=== PATIENT | female | born 1960 | race Caucasian/White ===

== ENCOUNTER 2019-12-02 13:00 | Emergency (ER) | payer MEDICARE, OTHER, SELFPAY ==
[2019-12-02] VITALS (7 sets, daily range): BP systolic 90–101; BP diastolic 52–65; PULSE 101–106; RESP 12–18; TEMP 36.8; O2SAT 93–98
--- NOTE | ~2019-12-02 | CT_ITS ---
EXAMINATION: CT abdomen pelvis w con DATE: 12/02/2019 14:18 INDICATION: Right upper quadrant abdominal pain. Abdominal bloating. Ascites. TECHNIQUE: Computed tomography (CT) of the abdomen and pelvis was performed with 100 cc Omnipaque 350 intravenous contrast. Automated exposure control and iterative reconstruction technique were employe d. Exam dose: 546.73 mGy-cm total exam DLP. COMPARISON: None. FINDINGS: There is large right pleural effusion with compressive atelectasis of the right lower lobe and to a lesser extent middle lobe. No left pleural effusion. The left lower lung is clear. Normal heart size. No pericardial effusion. There is a small liver with prominent surface nodularity and heterogeneous echotexture, as well as pr esence of varices, consistent with cirrhosis. Hepatic space-occupying mass lesion is not excluded due to the heterogeneous texture. There is nonspecific thickening of the gallbladder wall. There is air within the intrahepatic and ext rahepatic bile ducts, the extra hepatic bile ducts measuring up to 9.4 mm diameter. No pancreatic spa ce-occupying mass lesion or calcification. Borderline splenic, spleen measuring up to 13 cm height. Occasional calcified splenic granulomas. Mild to moderate ascites. No adrenal mass lesion is evident. 12 mm upper pole right renal cyst. 1.5 cm lower pole left renal cyst. 5 mm probable upper and lower p ole left renal cysts. 3.5 x 4.5 cm left adnexal cystic lesion with attenuation of 14 Hounsfield units and some calcificatio ns. 2.4 x 3.5 cm right adnexal cystic lesion. There are large calcified uterine fibroids. There is a prominent amount of fecal material within the colon. No bowel obstruction or intraperitone al free air is evident. There is extensive abdominal aortic calcification, prominent left renal artery calcification and bila teral iliac and femoral artery calcification, without aneurysm. No intraperitoneal or retroperitoneal or pelvic mass lesion or adenopathy is noted otherwise. Healing posterolateral right 11th rib fracture. Healing posterolateral left 10th rib fracture. Diffuse idiopathic skeletal hyperostosis of the thoracic spine. Prominent degenerative disc disease at L5-S1. Degenerative change at the apophyseal joints particular ly in the lower lumbar and lumbosacral area. Diffuse osteopenia. IMPRESSION: Cirrhosis, borderline splenomegaly, ascites, varices Mild bile duct dilatation, pneumobilia Bilateral renal cysts Bilateral adnexal cystic lesions measuring up to 4.5 cm on the left, 3.5 cm on the right Calcified uterine fibroids Healing bilateral lower rib fractures Large right pleural effusion with compressive atelectasis of right lower and to a lesser extent middl e lobe Reviewed, dictated and finalized at [facility]. Reviewed, dictated and finalized at [facility]. IMPRESSION: Cirrhosis, borderline splenomegaly, ascites, varices Mild bile duct dilatation, pneumobilia Bilateral renal cysts Bilateral adnexal cystic lesions measuring up to 4.5 cm on the left, 3.5 cm on the right Calcified uterine fibroids Healing bilateral lower rib fractures Large right pleural effusion with compressive atelectasis of right lower and to a lesser extent middle lobe
--- NOTE | 2019-12-02 12:57 | ED.ABDPAIN ---
HPI - Abdominal Pain General Chief Complaint: Abdominal Pain Stated Complaint: POST OP PAIN Time Seen by Provider: 12/02/19 12:57 Source: patient Mode of arrival: EMS Limitations: no limitations History of Present Illness HPI narrative: A 59 y/o female presents to the ED, via EMS from [facility], with c/o RUQ ABD pain. Pt states that she had a biliary STENT removed on 11/30/19 and has had RUQ ABD pain since. Her STENT was placed at [facility] by Dr. Banegas. She has a PMHx of cirrhosis of the liver secondary to alcohol abuse and chronic abdominal pain. Pt adds that the ABD pain is more severe than normal the last 3 days. She denies N/V, fever, SOB, and CP. MD elicited complaint: abdominal pain (RUQ) Pertinent past history: other (Cirrhosis) Onset (ago): day(s) (2) Pain Consistency: constant Location: RUQ Context: confirms recent surgery/procedure (Biliary STENT removed) Associated symptoms: denies other symptoms Related Data Home Medications Medication Instructions Recorded Confirmed albuterol sulfate 2 puff INHALATION Q4H PRN 12/02/19 atenolol 25 mg PO DAILY 12/02/19 cyclobenzaprine 5 mg PO TID PRN 12/02/19 furosemide 20 mg PO DAILY 12/02/19 lactulose 20 g PO TID 12/02/19 lidocaine [Lidoderm] 1 patch TOPICAL DAILY 12/02/19 nicotine [Nicoderm CQ] 12/02/19 nortriptyline 10 mg PO HS 12/02/19 omeprazole 20 mg PO DAILY 12/02/19 oxycodone 12/02/19 spironolactone 50 mg PO DAILY 12/02/19 venlafaxine 75 mg PO DAILY 12/02/19 Allergies Allergy/AdvReac Type Severity Reaction Status Date / Time gabapentin Allergy Unknown Verified 12/02/19 13:07 Review of Systems Review of Systems: All systems reviewed & are unremarkable except as noted in HPI and below Constitutional: Constitutional: Denies fever(s) Cardiovascular: Cardiovascular: Denies chest pain Respiratory: Respiratory: Denies dyspnea Gastrointestinal: Gastrointestinal: Reports abdominal pain (RUQ), Denies nausea and Denies vomiting PMFSH Past Medical History Medical History (Updated 12/02/19 @ 18:18 by Tracee Curry MD) Chronic abdominal pain Cirrhosis with alcoholism History of biliary stent insertion Surgical History Surgical History (Updated 12/02/19 @ 13:10 by Rosa Tamayo) History of endoscopy Social History Social History (Updated 12/02/19 @ 13:11 by Rosa Tamayo) Alcohol intake: former Alcohol use details: Alcoholic Exam Narrative: Exam Narrative: General appearance: Well-developed, well-nourished, ill looking, pale skin, family member at the bedside Skin: Pale skin Head: Normocephalic, nontraumatic Eyes: Clear conjunctiva ENT: Oropharynx normal, ears normal, nose normal Neck: Supple, nontender Chest and respiratory: Airway patent, no respiratory distress, no accessory muscle use Heart: Regular rate/rhythm Abdomen: Large abdomen, moderate ascites, diffuse tenderness epigastric and right upper quadrant, no guarding or rebound, quiet bowel sounds Vascular: Normal peripheral pulses, normal capillary refill. Musculoskeletal: Normal range of motion, nontender back Neurologic: Alert and oriented ?3, NEURORADIOLOGIST is normal as tested, no gross motor deficit Course Course Emergency Course: Unchanged, stable Reevaluation(s) Reevaluation #1: Patient was accepted to be transferred to [facility], direct admit, discussed with Dr. Wayne/candle wrapper at [facility] Date: 12/02/19 Time: 18:18 Consultations Consultation #1: Discussed case with candle wrapper, Dr. Gutiérrez. They accept patient for transfer. Date: 12/02/19 Time: 17:45 Vital Signs Vital signs: Vital Signs Temperature 36.8 C 12/02/19 12:45 Pulse Rat
[2019-12-02 13:48] LABS: Basophils Absolute Auto 0.1 K/mm3 (0.0-0.1); Basophils Percent Auto 0.5 % (0.2-1.2); Eosinophils Absolute Auto 0.3 K/mm3 (0-0.3); Hemoglobin 8.1 g/dL (12.0-15.0); Immature Granulocyte Absolute 0.04 K/mm3 (0.00-0.031); Immature Granulocyte Percent A 0.4 % (0-0.5); Lymphocytes Absolute Auto 1.16 K/mm3 (0.9-3.2); Lymphocytes Percent Auto 12.4 % (18.3-44.2); Mean Corpuscular HGB Conc 32.4 g/dl (32-36); Mean Corpuscular Hemoglobin 31.2 pg (26-34); Mean Corpuscular Volume 96.2 fl (80-100); Mean Platelet Volume 10.3 fl (7.4-10.4); Monocytes Absolute Auto 1.2 K/mm3 (0.1-0.6); Monocytes Percent Auto 13.3 % (2.6-8.5); Neutrophils Absolute Auto 6.6 K/mm3 (1.3-6.7); Neutrophils Percent Auto 70.4 % (45.5-73.1); Platelet Count Result 292 k/mm3 (150-375); Red Cell Distribution Width 15.8 % (11.5-14.5); White Blood Count 9.3 K/mm3 (4.5-10.0)
[2019-12-02] MEDS: SODIUM CHLORIDE 0.9% IV 1,000 ML 100 ML IV CONT (13:50)
[2019-12-02] MEDS: MORPHINE SULFATE 4 MG/ML INJ IV PUSH ×2 (13:50→20:27)
[2019-12-02] MEDS: ONDANSETRON INJ 4 MG/2 ML VIAL IV PUSH ×2 (13:56→20:27)
[2019-12-02 14:01] LABS: INR 1.7; Prothrombin Time 19.7 Seconds (11.1-14.7)
[2019-12-02 14:09] LABS: Alanine Aminotransferase 21 U/L (4-35); Albumin Level 2.2 g/dL (3.5-5.1); Alkaline Phosphatase 198 U/L (38-126); Aspartate Amino Transferase 30 U/L (14-36); Bilirubin,Total 0.9 mg/dL (0.2-1.3); Blood Urea Nitrogen 10 mg/dL (7-17); Calcium 7.5 mg/dL (8.4-10.2); Carbon Dioxide 27 mmol/L (22-30); Chloride 100 mmol/L (98-107); Estimated CRCL calculation 73 ml/min; Estimated Glomerular Filt Rate > 60; Glucose 116 mg/dL (65-105); Lipase 109 U/L (23-300); Potassium 3.6 mmol/L (3.4-5.0); Sodium 133 mmol/L (137-145)
[2019-12-02 14:12] LABS: Estimated CRCL calculation 73 ml/min; Estimated Glomerular Filt Rate > 60
[2019-12-02 15:55] LABS: Add Urine Microscopic? YES; Appearance Urine Clear (Clear); Bilirubin Urine Negative (Negative); Blood Urine Negative (Negative); Color Urine Straw (Yellow); Glucose Urine UA Negative (Negative); Ketones Urine Negative (Negative); Leukocyte Esterase Ur Negative LEU/UL (Negative); Mucus Urine Rare /lpf; Nitrate Urine Negative (Negative); Protein Urine Negative (Negative); Specific Grav Ur 1.025 (1.001-1.035); Squamous Epithelial Cell Urine Few /hpf (Few); WBC Urine 0-3 /hpf
--- NOTE | 2019-12-02 19:40 | PC.NURSE ---
Called Sandra to transport to [facility].ETA [phone]
[2019-12-02] MEDS: SODIUM CHLORIDE 0.9% IV 1,000 ML 50 ML (20:02)
== END 2019-12-02 20:36 | disposition short-term general hospital (02) ==
PROVIDERS: Emergency Provider Emergency Medicine; PCP Family Medicine
DX: K70.31 Alcoholic cirrhosis of liver with ascites (principal); F10.20 Alcohol dependence, uncomplicated; D64.9 Anemia, unspecified; N28.1 Cyst of kidney, acquired; D25.9 Leiomyoma of uterus, unspecified; J90 Pleural effusion, not elsewhere classified; N94.89 Other specified conditions associated with female genital organs and menstrual cycle
CPT/HCPCS: 36415; 74177; 80053; 81001; 83690; 85025; 85610; 96361; 96374; 96375; 99285; J2270; J2405; J7030; Q9967

== ENCOUNTER 2019-12-25 16:52 | Inpatient (IN) | payer MEDICARE, OTHER, SELFPAY ==
[2019-12-25] VITALS (17 sets, daily range): BP systolic 82–123; BP diastolic 47–75; PULSE 84–98; RESP 6–27; TEMP 36.3–37.2; O2SAT 88–100; BMI 21.2
--- NOTE | ~2019-12-25 | XR_ITS ---
EXAMINATION: XR abdomen obstructive series EXAM DATE: 12/26/2019 09:12 INDICATION: Abdominal distention. TECHNIQUE: Frontal upright projection of the upper abdomen, frontal projection of the lower abdomen f or interpretation. There is no prior study for comparison. FINDINGS: Moderate right pleural effusion with adjacent airspace disease. Moderate amount of bowel s tool, gas without dilated small bowel, no small bowel obstruction. Probable fibroids. There is no org anomegaly. There are bony degenerative changes. No evidence of free intraperitoneal gas. IMPRESSION: 1. Moderate amount of bowel stool and gas. No obstruction. 2. Moderate right pleural effusion, adjacent airspace disease at least partly atelectasis. Reviewed, dictated and finalized at [facility].
--- NOTE | ~2019-12-25 | CT_ITS ---
EXAMINATION: CT brain wo con INDICATION: Confusion COMPARISON: None TECHNIQUE: Standard unenhanced head CT. The dose-length product (DLP) was 605.33 mGy-cm. The mA was a djusted according to patient size. Iterative reconstruction technique was employed. FINDINGS: There is no acute intraparenchymal hemorrhage. No evidence of mass lesion. No evidence of a cute infarction. There is mild periventricular and subcortical hypodensity probably related to small vessel ischemic disease. There is mild prominence of the sulci and ventricles related to cerebral atr ophy. Intracranial calcified cerebral atherosclerosis is noted. There are no extra-axial collections. There is no mass effect or midline shift. The orbits and soft tissues are unremarkable. The visuali zed sinuses and mastoid air cells are well aerated. IMPRESSION: 1. No acute intracranial abnormality. 2. Age related findings. Reviewed, dictated and finalized at [facility].
--- NOTE | ~2019-12-25 | XR_ITS ---
EXAMINATION: XR chest 1V portable EXAM DATE: 12/26/2019 09:12 INDICATION: Abdominal distention, shortness of breath. TECHNIQUE: Portable AP frontal chest x-ray was obtained. There is no prior study for comparison. FINDINGS: There is moderate-sized right pleural effusion with adjacent multisegmental atelectasis. Un derlying pneumonia or cancer not excludable. Left lung is clear. No pneumothorax. There are bony dege nerative changes. Cardiomediastinal silhouette is normal. There is aortic arterial sclerosis. IMPRESSION: Moderate right pleural effusion with adjacent atelectasis. Underlying pneumonia or cancer not excludable. Reviewed, dictated and finalized at location [facility]. IMPRESSION: Moderate right pleural effusion with adjacent atelectasis. Underlyi ng pneumonia or cancer not excludable.
--- NOTE | 2019-12-25 16:57 | ECG_ITS ---
Measurements Intervals [place] Rate: 87 P: 12 AK: 146 QRS: 64 QRSD: 104 T: 53 QT: 376 QTc: 453 Interpretive Statements SINUS RHYTHM LOW QRS VOLTAGE IN LIMB LEADS BASELINE ARTIFACT- I, II, III, AVR, AVL, AVF, V4-V6 BORDERLINE ECG Electronically Signed On 12-25-2019 18:41:56 CDT by Kenneth Escobedo D.O.
[2019-12-25 17:07] LABS: Basophils Percent Auto 0.5 % (0.2-1.2); Eosinophils Absolute Auto 0.5 K/mm3 (0-0.3); Eosinophils Percent Auto 6.5 % (0-4.4); Hematocrit 27.2 % (37.0-47.0); Hemoglobin 8.7 g/dL (12.0-15.0); Immature Granulocyte Absolute 0.04 K/mm3 (0.00-0.031); Immature Granulocyte Percent A 0.5 % (0-0.5); Lymphocytes Absolute Auto 1.28 K/mm3 (0.9-3.2); Lymphocytes Percent Auto 16.6 % (18.3-44.2); Mean Corpuscular Hemoglobin 31.1 pg (26-34); Mean Corpuscular Volume 97.1 fl (80-100); Mean Platelet Volume 10.2 fl (7.4-10.4); Monocytes Percent Auto 13.2 % (2.6-8.5); Neutrophils Absolute Auto 4.8 K/mm3 (1.3-6.7); Neutrophils Percent Auto 62.7 % (45.5-73.1); Platelet Count Result 285 k/mm3 (150-375); Red Cell Distribution Width 15.4 % (11.5-14.5); White Blood Count 7.7 K/mm3 (4.5-10.0)
--- NOTE | 2019-12-25 17:11 | ED.AMS ---
HPI - Altered Mental Status General Chief Complaint: Altered Mental Status Stated Complaint: AMS Time Seen by Provider: 12/25/19 17:09 Source: patient and EMS Mode of arrival: EMS Limitations: no limitations History of Present Illness HPI narrative: Patient is a 59 year old female who presents to the ED, via EMS, from [facility] with complaints of altered mental status. Pt was given 800mL of fluids from EMS. The custodial stated that she normally walks with a walker and this afternoon she started declining. She is only responsive with a sternal rub per EMS. Patient was given Narcan in the ED bed and a minute later she woke up and stated she was tired and wanted a blanket. She stated that she used to be on 10mg of Oxycodone and is now on 5mg. Patient reports chronic back pain but denies nausea, vomiting, diarrhea, cough, fever, chills, sweats, chest pain, or abdominal pain. Patient is a former smoker She lives in a correction. MD complaint: altered mental status Onset (ago): day(s) (today) Consistency of symptoms: getting Worse Context: other (pain medicine) Associated symptoms: denies other symptoms Treatments prior to arrival: IV fluid Related Data Home Medications Medication Instructions Recorded Confirmed albuterol sulfate 2 puff INHALATION Q4H PRN 12/02/19 12/25/19 atenolol 25 mg PO DAILY 12/02/19 12/25/19 cyclobenzaprine 5 mg PO TID PRN 12/02/19 12/25/19 furosemide 20 mg PO DAILY 12/02/19 12/25/19 lactulose 20 g PO TID 12/02/19 12/25/19 lidocaine [Lidoderm] 1 patch TOPICAL DAILY 12/02/19 12/25/19 nicotine [Nicoderm CQ] 21 mg TRANSDERMAL DAILY 12/02/19 12/25/19 nortriptyline 10 mg PO HS 12/02/19 12/25/19 omeprazole 20 mg PO DAILY 12/02/19 12/25/19 oxycodone 5 mg PO Q8H PRN 12/02/19 12/25/19 spironolactone 50 mg PO DAILY 12/02/19 12/25/19 venlafaxine 75 mg PO DAILY 12/02/19 12/25/19 acetaminophen 650 mg PO Q8H 12/25/19 12/25/19 ipratropium-albuterol 1 amp INHALATION Q6H PRN 12/25/19 12/25/19 metoprolol tartrate 25 mg PO BID 12/25/19 12/25/19 Allergies Allergy/AdvReac Type Severity Reaction Status Date / Time gabapentin Allergy Unknown Verified 12/25/19 18:08 Review of Systems Review of Systems: All systems reviewed & are unremarkable except as noted in HPI and below Constitutional: Constitutional: Denies chills, Denies fever(s) and Denies other (sweats) Cardiovascular: Cardiovascular: Denies chest pain Respiratory: Respiratory: Denies cough Gastrointestinal: Gastrointestinal: Denies abdominal pain, Denies diarrhea, Denies nausea and Denies vomiting Musculoskeletal: Musculoskeletal: Reports back pain (chronic) [facility] Past Medical History Medical History Chronic abdominal pain Cirrhosis with alcoholism History of biliary stent insertion Surgical History Surgical History History of endoscopy Social History Social History (Updated 12/25/19 @ 18:26 by Mer Waldron) Smoking packs per day: 2 Smoking cigarettes per day: 40.0 Years smoked: 46 Smoking pack-years: 92.00 Smoking status: Former smoker Tobacco type: cigarettes Second hand tobacco smoke exposure: No Alcohol intake: former Substance use: unknown Living arrangements: correction Gender identity (if verbalized by the patient): Female Spiritual care concerns: No Agree to blood products: Yes Exam HENMT: Mouth: Yes dry mucous membranes and Yes other (bit down when checking teeth) Teeth and gingiva: other (no upper teeth, lower teeth present) Eyes: EOM: EOMs intact bilaterally (normal after Narcan) and EOM abnormal (initially ) Resp: Effort & Inspection: other (was breathing slow before Narcan, normal after Narcan) Auscultation: clear to auscultation bilaterally Cardio: Peripheral pulses: femoral pulses present (strong) and dorsalis pedis present (weak) GI: Inspection: distended GI Palp: Yes A
[2019-12-25] MEDS: NALOXONE HCL INJ 2 MG/2 ML AMP IV PUSH (17:17)
[2019-12-25 17:19] LABS: Alanine Aminotransferase 17 U/L (4-35); Albumin Level 2.8 g/dL (3.5-5.1); Alkaline Phosphatase 185 U/L (38-126); Ammonia 28 umol/L (9-30); Aspartate Amino Transferase 36 U/L (14-36); Bilirubin,Total 0.8 mg/dL (0.2-1.3); Blood Urea Nitrogen 17 mg/dL (7-17); Carbon Dioxide 29 mmol/L (22-30); Chloride 102 mmol/L (98-107); Estimated Glomerular Filt Rate 57; Glucose 117 mg/dL (65-105); Lactic Acid 1.3 mmol/L (0.7-2.1); Potassium 4.5 mmol/L (3.4-5.0); Sodium 137 mmol/L (137-145)
[2019-12-25] MEDS: SODIUM CHLORIDE 0.9% IV 1,000 ML 999 ML IV CONT (17:21)
[2019-12-25 17:33] LABS: Add Urine Microscopic? YES; Appearance Urine Clear (Clear); Bilirubin Urine Negative (Negative); Blood Urine Negative (Negative); Color Urine Yellow (Yellow); Glucose Urine UA Negative (Negative); Hyaline Casts Urine 20-29 /lpf; Ketones Urine Negative (Negative); Leukocyte Esterase Ur Negative LEU/UL (Negative); Mucus Urine Rare /lpf; Nitrate Urine Negative (Negative); Protein Urine Negative (Negative); RBC Urine 0-2 /hpf (0-2); Specific Grav Ur 1.014 (1.001-1.035); Squamous Epithelial Cell Urine Few /hpf (Few); Urobilinogen Urine Negative mg/dL (<2.0); WBC Urine 0-3 /hpf
[2019-12-25 17:53] LABS: Amphetamine Screen Urine Negative (Negative); Barbiturate Screen Urine Negative (Negative); Benzodiazepines Screen Urine Negative (Negative); Cannabinoid Screen Urine Negative (Negative); Cocaine Screen Urine Negative (Negative); Methadone Screen Urine Negative (Negative); Opiate Screen Urine Positive (Negative); Phencyclidine Screen Urine Negative (Negative)
--- NOTE | 2019-12-25 21:00 | PM.IMHP ---
H&P: HPI History of Present Illness Chief complaint: Altered mental status. Narrative: Codie Martinez is a 59-year-old female with alcoholic cirrhosis, COPD, Sjogren's syndrome, and chronic anemia who presented to the emergency department earlier today via EMS from [facility] for evaluation of altered mental status. She is not the greatest historian, and as such some of this history is obtained via a review of her electronic medical records. Reportedly she was in her, however this afternoon she became less and less responsive to the point where she would not even arouse with a sternal rub. On arrival to the emergency department, she was given Narcan with improvement in her mentation. She is now in the ICU on a Narcan drip. At the time my evaluation she is alert and oriented x4, however she is intermittently confused and occasionally answers questions inappropriately. When asked why she was brought to the emergency department today, she begins telling a story that she was sitting at the dealer table, started shaking, and 1 of the players noticed and called for help. Of course this is not a true story, as she came from a [facility]. She did not seem to recall the history that I related to her, which was documented per the ED physician. 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 In any regard, she has no complaints at the time my evaluation specifically denies headache, diplopia, vertigo, dizziness, focal weakness, paresthesias, chest pain, palpitations, nausea, vomiting, diarrhea, and dysuria. No history of seizures. Review of Systems Review of Systems: Narrative: Twelve systems were reviewed with pertinent positives and negatives as per HPI. Her history is questionable given her intermittent confusion, however. Patient complains of a dry mouth, which is chronic secondary to Sjogren. She has chronic abdominal pain, and does take oxycodone on occasion. Previously she took 10 milligrams daily, but is now taking 5 milligrams as needed. I believe she did get a dose of oxycodone sometime this afternoon. Except as documented, all other systems were reviewed and are negative. [facility] Past Medical History Medical History (Updated 12/25/19 @ 21:37 by Radha Chacko PA-C) Alcoholic cirrhosis Chronic abdominal pain Chronic anemia COPD (chronic obstructive pulmonary disease) Depression with anxiety Eczema Emphysema (subcutaneous) (surgical) resulting from a procedure Esophageal varices in alcoholic cirrhosis History of biliary stent insertion Spontaneous bacterial peritonitis Surgical History Surgical History History of endoscopy Family History Family History Mother Acute myocardial infarction Chronic obstructive pulmonary disease Social History Social History (Updated 12/25/19 @ 21:46 by Radha Chacko PA-C) Social History: The patient is . 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 She is currently at [facility]. She has 1 son. Her mother, Edna Jaeger, is listed as her emergency contact. She wishes to be a full code. She smoked 1.5 to 2 packs of cigarettes per day for last 46 years, but has not been smoking at University. She has a history of alcoholism, but has abstained for ?quite some time.? No drug use. Smoking packs per day: 2 Smoking cigarettes per day: 40.0 Years smoked: 46 Smoking pack-years: 92.00 Smoking status: Former smoker Tobacco type: cigarettes Second hand tobacco smoke exposure: No Alcohol intake: former Substance use: unknown Living arrangements: fpc Spiritual care concerns: No Agree to blood products: Yes Meds Home Medications and Allergies Home Medications Medication Instructions Recorded Confir
--- NOTE | 2019-12-25 21:08 | PC.NURSE ---
This patient, Codie Martinez, was admitted to Intensive Care Unit-11. Patient/family oriented to hospital policies and general routines including ID bracelet, bed and alarms, visiting hours, pain management, procedures, bathroom and other care routines, personal items, smoking policy, room service/diet, and visiting hours. Valuables list has been completed. Information on how to activate the Rapid Response Team has been discussed. Patient/Family are encouraged to report perceived risks to care and to ask questions if they do not understand what they are told or what they should do.
[2019-12-25 22:03] LABS: Alveolar/Arterial O2 Gradient 63.7 mmHg; Base Excess ABG 0.5 mEq/l (+/-2.0); Carboxyhemoglobin 0.3 % THb (0-2.0); Fractional Inspired Oxygen 24 %; HCO3 ABG 24.8 mEq/l (22.0-26.0); Methemoglobin ABG 0.4 %THb (0-1.5); Oxygen Content ABG 13.6 %vol (16.0-22.0); Oxygen Saturation ABG 92.2 % (95.0-100.0); Oxyhemoglobin 89.3 % THb (90.0-100.0); PCO2 ABG 38.6 mmHg (35.0-45.0); PO2 ABG 61.5 mmHg (80.0-100.0); PO2 FiO2 Ratio Arterial Blood 2.56 %; Total Hemoglobin 10.8 g/dL (12.0-18.0); pH ABG 7.426 (7.350-7.450)
[2019-12-25 22:04] LABS: Device NASAL CANNULA; Modified Allen's Test Pass; Site Drawn RIGHT RADIAL
[2019-12-25] MEDS: ACETAMINOPHEN 325 MG TABLET 650 MG PO (22:42)
[2019-12-25 23:12] LABS: INR 1.5; Prothrombin Time 17.7 Seconds (11.1-14.7)
[2019-12-25 23:13] LABS: Partial Thromboplastin Time 38.3 SECONDS (22.3-36.8)
[2019-12-26] VITALS (17 sets, daily range): BP systolic 82–149; BP diastolic 65–76; PULSE 80–122; RESP 15–24; TEMP 36.6–37.1; O2SAT 94–99
[2019-12-26] MEDS: SODIUM CHLORIDE 0.9% IV 1,000 ML 100 ML IV CONT ×2 (02:30→07:53)
[2019-12-26] MEDS: SODIUM CHLORIDE 0.9% IV 500 ML IV CONT (02:51)
[2019-12-26 04:56] LABS: Basophils Percent Auto 0.3 % (0.2-1.2); Eosinophils Absolute Auto 0.4 K/mm3 (0-0.3); Eosinophils Percent Auto 5.4 % (0-4.4); Hematocrit 26.4 % (37.0-47.0); Hemoglobin 8.5 g/dL (12.0-15.0); Immature Granulocyte Absolute 0.02 K/mm3 (0.00-0.031); Immature Granulocyte Percent A 0.3 % (0-0.5); Lymphocytes Percent Auto 16.6 % (18.3-44.2); Mean Corpuscular HGB Conc 32.2 g/dl (32-36); Mean Corpuscular Hemoglobin 31.1 pg (26-34); Mean Corpuscular Volume 96.7 fl (80-100); Mean Platelet Volume 10.1 fl (7.4-10.4); Monocytes Absolute Auto 0.7 K/mm3 (0.1-0.6); Monocytes Percent Auto 10.3 % (2.6-8.5); Neutrophils Absolute Auto 4.8 K/mm3 (1.3-6.7); Neutrophils Percent Auto 67.1 % (45.5-73.1); Platelet Count Result 284 k/mm3 (150-375); Red Blood Count 2.73 M/mm3 (4.2-5.4); Red Cell Distribution Width 15.5 % (11.5-14.5); White Blood Count 7.2 K/mm3 (4.5-10.0)
[2019-12-26 05:18] LABS: Alanine Aminotransferase 17 U/L (4-35); Albumin Level 2.6 g/dL (3.5-5.1); Alkaline Phosphatase 170 U/L (38-126); Aspartate Amino Transferase 31 U/L (14-36); Bilirubin,Total 0.7 mg/dL (0.2-1.3); Blood Urea Nitrogen 17 mg/dL (7-17); Calcium 7.7 mg/dL (8.4-10.2); Carbon Dioxide 25 mmol/L (22-30); Chloride 108 mmol/L (98-107); Estimated CRCL calculation 62 ml/min; Estimated Glomerular Filt Rate > 60; Glucose 81 mg/dL (65-105); Magnesium 2.2 mg/dL (1.6-2.3); Phosphorus 4.2 mg/dL (2.5-4.5); Potassium 4.6 mmol/L (3.4-5.0); Sodium 137 mmol/L (137-145)
[2019-12-26 08:09] LABS: Ammonia 53 umol/L (9-30)
[2019-12-26] MEDS: SPIRONOLACTONE 50 MG TABLET PO (08:27)
[2019-12-26] MEDS: VENLAFAXINE HCL XR 75 MG CAP.ER.24H PO (08:27)
[2019-12-26] MEDS: PANTOPRAZOLE 40 MG TABLET PO (08:27)
[2019-12-26] MEDS: FUROSEMIDE 20 MG TABLET PO (08:27)
[2019-12-26] MEDS: atenoloL 25 MG TABLET PO (08:28)
[2019-12-26] MEDS: NICOTINE (*PBKC) 21 MG PATCH 1 PATCH TRANSDERM (08:28)
[2019-12-26] MEDS: LACTULOSE 20 GM/30 ML UDC PO (08:29)
[2019-12-26] MEDS: LACTULOSE 20 GM/30 ML UDC 30 GM PO ×3 (09:00→17:17)
--- NOTE | 2019-12-26 11:49 | WPDCNINT ---
Assessment and Plan Assessment and plan (1) Encephalopathy: Code(s): G93.40 - Encephalopathy, unspecified Status: Acute Assessment and Plan: likely narcotic overdose and for elevated ammonia level, hepatic encephalopathy, patient was on Narcan infusion overnight, this has been discontinued this morning - patient remains awake, alert, oriented x3 - continue to monitor off Narcan infusion (2) Narcotic overdose: Qualifiers: Encounter type: initial encounter Injury intent: accidental or unintentional Qualified Code(s): T40.601A - Poisoning by unspecified narcotics, accidental (unintentional), initial encounter Code(s): T40.601A - Poisoning by unspecified narcotics, accidental (unintentional), initial encounter Status: Acute Assessment and Plan: patient on oxycodone at to custodial home. (3) Alcoholic cirrhosis: Code(s): K70.30 - Alcoholic cirrhosis of liver without ascites Status: Acute Assessment and Plan: History of alcoholic cirrhosis - ammonia levels elevated, continue lactulose (4) Chronic anemia: Code(s): D64.9 - Anemia, unspecified Status: Acute Assessment and Plan: hemoglobin has been stable, no obvious bleeding noted, continue monitoring H&H (5) Chronic abdominal pain: Code(s): R10.9 - Unspecified abdominal pain; G89.29 - Other chronic pain Status: Acute Assessment and Plan: patient with history of chronic abdominal pain and to ascites. X-ray of the abdomen shows moderate amount of bowel gas, no obstruction Additional Plan discuss with patient updated with condition and plan of care. Code status: Full code Critical care time spent: 39 minutes Due to a high probability of clinically significant, life threatening deterioration, the patient required my highest level of preparedness to intervene emergently and I personally spent this critical care time directly and personally managing the patient. This critical care time included obtaining a history; examining the patient; pulse oximetry; ordering and review of studies; arranging urgent treatment with development of a management plan; evaluation of patient's response to treatment; frequent reassessment; and discussions with other providers. It was exclusive of separately billable procedures and treating other patients and teaching time. Please see Assessment and Plan section and the rest of the note for further information on patient assessment and treatment [employer]k [employer] Supervisor Consult Note Consult date: 12/26/19 Time Seen: 07:04 HPI: Codie Martinez is a 59 year old female With significant past medical history of alcoholic cirrhosis, history of biliary stent, chronic abdominal pain, chronic anemia, COPD, depression with anxiety, eczema, emphysema, esophageal varices with alcoholic cirrhosis, history of spontaneous bacterial peritonitis presented to the ED on 12/25/2019 from [facility] for evaluation of altered mental status. Patient is on narcotics at the custodial. She was given Narcan with significant improvement in her mentation in the ED. She was alert, oriented x4, them was somnolent on placed on a Narcan drip and sent to the ICU for further management. CT scan of the head in the ED did not show any acute intracranial abnormalities. Patient seen examined this morning in the ICU, remains on Narcan infusion at 0.2 mg/hour. Patient awake, alert, oriented x3 , answers to questions appropriately and follows simple commands. Narcan decreased to 0.1 mg/hour. Patient tolrated her diet. Complains of mild shortness of breath, abdominal pain. Denies any chest pain, nausea vomiting at this time. States she does not feel that there is fluid in her abdomen. Ammonia 53 this am Review of Systems Review of Systems: All systems reviewed & are unremarkable except as noted in HPI and below PMFSH Past Medical History Medical History (Updated 12/25/19
[2019-12-26] MEDS: IPRATROPIUM BR 0.02% INH SOLN 0.5 MG/2.5 ML VIAL INHALATION ×2 (12:57→20:25)
--- NOTE | 2019-12-26 15:04 | PM.IMPN ---
Progress Note: A&P Assessment and Plan (1) Encephalopathy: Code(s): G93.40 - Encephalopathy, unspecified Status: Acute Assessment and Plan: due to unintentional narcotic overdose and possibly some hepatic encephalopathy She is now alert and oriented x4 on a Narcan drip which was discontinued this a.m.. Ammonia is within normal limits. On admission and up some to 53 today B12 and TSH normal. Brain CT no acute changes (2) Narcotic overdose: Qualifiers: Encounter type: initial encounter Injury intent: accidental or unintentional Qualified Code(s): T40.601A - Poisoning by unspecified narcotics, accidental (unintentional), initial encounter Code(s): T40.601A - Poisoning by unspecified narcotics, accidental (unintentional), initial encounter Status: Acute Assessment and Plan: Unintentional overdose. Currently on a Narcan drip, which will be discontinued this a.m. and alert. (3) Hypotension: Qualifiers: Hypotension type: unspecified hypotension type Qualified Code(s): I95.9 - Hypotension, unspecified Code(s): I95.9 - Hypotension, unspecified Status: Acute Assessment and Plan: She received IV fluid bolus with some improvement her blood pressures. Looking back through her prior history, her blood pressure is always run a bit soft. Resolved (4) Alcoholic cirrhosis: Code(s): K70.30 - Alcoholic cirrhosis of liver without ascites Status: Acute Assessment and Plan: Continue beta-sukh, furosemide, spironolactone, and lactulose as tolerated. (5) Chronic anemia: Code(s): D64.9 - Anemia, unspecified Status: Acute Assessment and Plan: Hemoglobin is stable on review of previous labs. HGB 8.5 today 12/25 (6) Chronic abdominal pain: Code(s): R10.9 - Unspecified abdominal pain; G89.29 - Other chronic pain Status: Acute Assessment and Plan: Opiates are on hold and will have to probable in readdress or restart at a lower dose later Subjective Date/time seen: 12/26/19 15:04 Interval history: Date of visit 12/25. 59-year-old white female with alcoholic liver disease admitted with altered mental status and to improved immensely after Narcan given. [place] she had an unintentional narcotic overdose. Which more alert today taking nourishment sitting in bed and talking coherently. Narcan drip overnight Exam Narrative: Exam Narrative: General: Chronically ill-appearing female, supine in bed. Nontoxic in appearance. Looks older than stated age. HEENT: PERRL, Sclerae anicteric Neck: Supple. Respiratory: Lung sounds are diminished at the bases. Cardiovascular: Regular rate and rhythm with S1-S2. Gastrointestinal: Abdomen is slightly firm and protuberant. Positive bowel sounds. No voluntary guarding or rebound tenderness. Skin: Cool and dry. Chronic skin changes on the lower legs bilaterally. Feet are dry and scaly. Extremities: No edema. Radial and pedal pulses intact. Neurological: Alert and oriented x4. Cranial nerves 2-12 are grossly intact. Speech is mainly clear, . No facial asymmetry. No asterixis. Diffusely weak, nonfocal. Psychiatric: Pleasant and cooperative. Although alert and oriented, Objective Data Vital Signs Vital Signs: Vital Signs - 24 hr 12/25/19 16:52 12/25/19 16:57 12/25/19 17:03 Temperature 36.3 C L Pulse Rate 87 87 Respiratory Rate 12 10 L Blood Pressure 82/53 L 88/47 L Pulse Oximetry 94 88 L 92 12/25/19 17:04 12/25/19 17:11 12/25/19 17:17 Temperature Pulse Rate 84 90 Respiratory Rate 9 L 6 L 18 Blood Pressure 88/47 L 89/54 L Pulse Oximetry 97 98 12/25/19 17:22 12/25/19 17:32 12/25/19 17:47 Temperature Pulse Rate 93 93 94 Respiratory Rate 22 H 27 H 20 Blood Pressure 102/74 123/59 L 114/69 Pulse Oximetry 97 96 97 12/25/19 18:01 12/25/19 18:03 12/25/19 18:16 Temperature Puls
--- NOTE | 2019-12-26 17:33 | PC.NURSE ---
This patient, Codie Martinez, was transferred to [[id number] ] on 12/26/19 at 1730. Personal belongings sent with patient. Belongings list checked and signed with receiving [ yes]. Report given to [Carli ]. Appropriate documentation sent with patient.
--- NOTE | 2019-12-26 18:37 | PC.NURSE ---
Transfer received from ICU 11. Patients belongings list verified.
[2019-12-26] MEDS: NORTRIPTYLINE HCL 10 MG CAPSULE PO (21:52)
[2019-12-27] VITALS (14 sets, daily range): BP systolic 99–122; BP diastolic 57–65; PULSE 113–130; RESP 18–118; TEMP 36.3–37.2; O2SAT 89–100
[2019-12-27] MEDS: IPRATROPIUM BR 0.02% INH SOLN 0.5 MG/2.5 ML VIAL INHALATION ×4 (02:05→20:22)
[2019-12-27 05:23] LABS: Ammonia < 9 umol/L (9-30)
[2019-12-27 06:08] LABS: Basophils Percent Auto 0.4 % (0.2-1.2); Eosinophils Absolute Auto 0.4 K/mm3 (0-0.3); Eosinophils Percent Auto 4.6 % (0-4.4); Hematocrit 27.3 % (37.0-47.0); Hemoglobin 8.9 g/dL (12.0-15.0); Immature Granulocyte Absolute 0.03 K/mm3 (0.00-0.031); Immature Granulocyte Percent A 0.4 % (0-0.5); Lymphocytes Absolute Auto 1.31 K/mm3 (0.9-3.2); Lymphocytes Percent Auto 15.9 % (18.3-44.2); Mean Corpuscular HGB Conc 32.6 g/dl (32-36); Mean Corpuscular Hemoglobin 31.6 pg (26-34); Mean Corpuscular Volume 96.8 fl (80-100); Monocytes Absolute Auto 0.7 K/mm3 (0.1-0.6); Neutrophils Absolute Auto 5.8 K/mm3 (1.3-6.7); Neutrophils Percent Auto 69.7 % (45.5-73.1); Platelet Count Result 272 k/mm3 (150-375); Red Blood Count 2.82 M/mm3 (4.2-5.4); Red Cell Distribution Width 15.6 % (11.5-14.5); White Blood Count 8.3 K/mm3 (4.5-10.0)
[2019-12-27 06:29] LABS: Alanine Aminotransferase 17 U/L (4-35); Albumin Level 2.9 g/dL (3.5-5.1); Alkaline Phosphatase 165 U/L (38-126); Aspartate Amino Transferase 38 U/L (14-36); Bilirubin,Total 0.8 mg/dL (0.2-1.3); Blood Urea Nitrogen 11 mg/dL (7-17); Calcium 8.5 mg/dL (8.4-10.2); Carbon Dioxide 23 mmol/L (22-30); Chloride 106 mmol/L (98-107); Estimated CRCL calculation 95 ml/min; Estimated Glomerular Filt Rate > 60; Glucose 80 mg/dL (65-105); Magnesium 1.9 mg/dL (1.6-2.3); Potassium 3.8 mmol/L (3.4-5.0); Sodium 137 mmol/L (137-145)
[2019-12-27] MEDS: atenoloL 25 MG TABLET PO (08:57)
[2019-12-27] MEDS: LACTULOSE 20 GM/30 ML UDC 30 GM PO ×3 (08:57→17:16)
[2019-12-27] MEDS: VENLAFAXINE HCL XR 75 MG CAP.ER.24H PO (08:57)
[2019-12-27] MEDS: PANTOPRAZOLE 40 MG TABLET PO (08:57)
[2019-12-27] MEDS: SPIRONOLACTONE 50 MG TABLET PO (08:57)
[2019-12-27] MEDS: NICOTINE (*PBKC) 21 MG PATCH 1 PATCH TRANSDERM (08:58)
[2019-12-27] MEDS: FUROSEMIDE 20 MG TABLET PO (08:58)
--- NOTE | 2019-12-27 14:46 | PM.IMPN ---
Progress Note: A&P Assessment and Plan (1) Encephalopathy: Code(s): G93.40 - Encephalopathy, unspecified Status: Acute Assessment and Plan: due to unintentional narcotic overdose and possibly some hepatic encephalopathy She is now alert and oriented x4 .. Ammonia is within normal limits again today , was elevated 12/25 B12 and TSH normal. Brain CT no acute changes (2) Narcotic overdose: Qualifiers: Encounter type: initial encounter Injury intent: accidental or unintentional Qualified Code(s): T40.601A - Poisoning by unspecified narcotics, accidental (unintentional), initial encounter Code(s): T40.601A - Poisoning by unspecified narcotics, accidental (unintentional), initial encounter Status: Acute Assessment and Plan: Unintentional overdose. Off narcan and concern now that is excibating some symptoms of withdrawal (3) Hypotension: Qualifiers: Hypotension type: unspecified hypotension type Qualified Code(s): I95.9 - Hypotension, unspecified Code(s): I95.9 - Hypotension, unspecified Status: Acute Assessment and Plan: She received IV fluid bolus after admission with some improvement in her blood pressures. Looking back through her prior history, her blood pressure is always run a bit soft. Resolved (4) Alcoholic cirrhosis: Code(s): K70.30 - Alcoholic cirrhosis of liver without ascites Status: Acute Assessment and Plan: Continue beta-sukh, furosemide, spironolactone, and lactulose as tolerated. ammonia level normal today (5) Chronic anemia: Code(s): D64.9 - Anemia, unspecified Status: Acute Assessment and Plan: Hemoglobin is stable on review of previous labs. HGB 8.9 today 12/26 (6) Chronic abdominal pain: Code(s): R10.9 - Unspecified abdominal pain; G89.29 - Other chronic pain Status: Acute Assessment and Plan: Opiates have been on hold but with tachycardia and increased pain re start a lesser dose Subjective Date/time seen: 12/27/19 14:46 Interval history: Date of visit 12/26. 59-year-old white female with alcoholic liver disease admitted with altered mental status and to improved immensely after Narcan given. [place] she had an unintentional narcotic overdose. alert today but complaining of more pain but talking coherently Exam Narrative: Exam Narrative: General: Chronically ill-appearing female in bed. Nontoxic in appearance. Looks older than stated age. HEENT: PERRL, Sclerae anicteric Neck: Supple. Respiratory: Lung sounds are diminished at the bases. Cardiovascular: Regular rate and rhythm with S1-S2. Gastrointestinal: Abdomen is slightly firm and protuberant. Positive bowel sounds. No tenderness. Skin: Cool and dry. Chronic skin changes on the lower legs bilaterally. Feet are dry and scaly. Extremities: No edema. Radial and pedal pulses intact. Neurological: Alert and oriented x4. Cranial nerves 2-12 are grossly intact. Speech is clear, Diffusely weak, nonfocal. Psychiatric: Pleasant and cooperative. Although alert and oriented, Objective Data Vital Signs Vital Signs: Vital Signs - 24 hr 12/26/19 16:00 12/26/19 18:00 12/26/19 20:26 Temperature 36.9 C 36.6 C Pulse Rate 116 H 115 H 122 H Respiratory Rate 18 18 20 Blood Pressure 118/66 127/74 Pulse Oximetry 97 94 12/26/19 20:30 12/26/19 20:31 12/26/19 22:00 Temperature 36.7 C Pulse Rate 120 H 119 H Respiratory Rate 20 20 Blood Pressure 149/73 H Pulse Oximetry 95 99 12/27/19 02:06 12/27/19 02:12 12/27/19 06:00 Temperature 36.6 C Pulse Rate 118 H 116 H 117 H Respiratory Rate 20 20 18 Blood Pressure 122/63 Pulse Oximetry 96 12/27/19 08:57 12/27/19 09:27 12/27/19 10:00 Temperature 36.7 C Pulse Rate 117 H 129 H 130 H Respiratory Rate 18 21 H Blood Pressure 103/65 Pulse Oximetry 94 100 12/27/19 11:49 04
[2019-12-27] MEDS: NORTRIPTYLINE HCL 10 MG CAPSULE PO (21:37)
[2019-12-28] VITALS (17 sets, daily range): BP systolic 97–113; BP diastolic 47–72; PULSE 105–134; RESP 16–20; TEMP 36.8–37.6; O2SAT 90–96
[2019-12-28] MEDS: IPRATROPIUM BR 0.02% INH SOLN 0.5 MG/2.5 ML VIAL INHALATION ×4 (01:42→20:26)
[2019-12-28 05:29] LABS: Basophils Percent Auto 0.4 % (0.2-1.2); Eosinophils Absolute Auto 0.4 K/mm3 (0-0.3); Eosinophils Percent Auto 5.2 % (0-4.4); Hematocrit 27.2 % (37.0-47.0); Hemoglobin 8.9 g/dL (12.0-15.0); Immature Granulocyte Absolute 0.03 K/mm3 (0.00-0.031); Immature Granulocyte Percent A 0.4 % (0-0.5); Lymphocytes Absolute Auto 1.39 K/mm3 (0.9-3.2); Lymphocytes Percent Auto 16.3 % (18.3-44.2); Mean Corpuscular HGB Conc 32.7 g/dl (32-36); Mean Corpuscular Hemoglobin 31.4 pg (26-34); Mean Corpuscular Volume 96.1 fl (80-100); Mean Platelet Volume 10.4 fl (7.4-10.4); Monocytes Absolute Auto 0.8 K/mm3 (0.1-0.6); Monocytes Percent Auto 9.7 % (2.6-8.5); Neutrophils Absolute Auto 5.8 K/mm3 (1.3-6.7); Platelet Count Result 287 k/mm3 (150-375); Red Blood Count 2.83 M/mm3 (4.2-5.4); Red Cell Distribution Width 15.6 % (11.5-14.5); White Blood Count 8.5 K/mm3 (4.5-10.0)
[2019-12-28 05:48] LABS: Blood Urea Nitrogen 11 mg/dL (7-17); Calcium 8.5 mg/dL (8.4-10.2); Carbon Dioxide 23 mmol/L (22-30); Chloride 105 mmol/L (98-107); Estimated CRCL calculation 80 ml/min; Estimated Glomerular Filt Rate > 60; Glucose 93 mg/dL (65-105); Potassium 3.7 mmol/L (3.4-5.0); Sodium 136 mmol/L (137-145)
[2019-12-28] MEDS: VENLAFAXINE HCL XR 75 MG CAP.ER.24H PO (08:58)
[2019-12-28] MEDS: PANTOPRAZOLE 40 MG TABLET PO (08:58)
[2019-12-28] MEDS: NICOTINE (*PBKC) 21 MG PATCH 1 PATCH TRANSDERM (09:02)
[2019-12-28] MEDS: atenoloL 25 MG TABLET PO (09:02)
[2019-12-28] MEDS: FUROSEMIDE 20 MG TABLET PO (09:02)
[2019-12-28] MEDS: SPIRONOLACTONE 50 MG TABLET PO (09:02)
[2019-12-28] MEDS: LACTULOSE 20 GM/30 ML UDC PO ×3 (09:03→16:50)
[2019-12-28] MEDS: METOPROLOL SUCCINATE EXT REL 25 MG TABCR PO (11:16)
--- NOTE | 2019-12-28 14:13 | PM.IMPN ---
Progress Note: A&P Assessment and Plan (1) Encephalopathy: Code(s): G93.40 - Encephalopathy, unspecified Status: Acute Assessment and Plan: due to unintentional narcotic overdose and possibly some hepatic encephalopathy She is now alert and oriented x4 .. Ammonia is within normal limits again today , was elevated 12/25 B12 and TSH normal. Brain CT no acute changes (2) Narcotic overdose: Qualifiers: Encounter type: initial encounter Injury intent: accidental or unintentional Qualified Code(s): T40.601A - Poisoning by unspecified narcotics, accidental (unintentional), initial encounter Code(s): T40.601A - Poisoning by unspecified narcotics, accidental (unintentional), initial encounter Status: Acute Assessment and Plan: Unintentional overdose. Off narcan and concern was that could be excibating some symptoms of withdrawal with the tachycardia but no GI symptoms or diaphoresis change atenolol to metorprololxl for better heart rate control (3) Hypotension: Qualifiers: Hypotension type: unspecified hypotension type Qualified Code(s): I95.9 - Hypotension, unspecified Code(s): I95.9 - Hypotension, unspecified Status: Acute Assessment and Plan: She received IV fluid bolus after admission with some improvement in her blood pressures. Looking back through her prior history, her blood pressure is always run a bit soft. Resolved (4) Alcoholic cirrhosis: Code(s): K70.30 - Alcoholic cirrhosis of liver without ascites Status: Acute Assessment and Plan: Continue beta-sukh, furosemide, spironolactone, and lactulose as tolerated. ammonia level normal 12/26 (5) Chronic anemia: Code(s): D64.9 - Anemia, unspecified Status: Acute Assessment and Plan: Hemoglobin is stable on review of previous labs. HGB 8.9 today as it was 12/26 (6) Chronic abdominal pain: Code(s): R10.9 - Unspecified abdominal pain; G89.29 - Other chronic pain Status: Acute Assessment and Plan: Opiates have been on hold but with tachycardia and increased pain restarted a lesser dose 12/26 and changed beta sukh as above Subjective Date/time seen: 12/28/19 14:13 Interval history: Date of visit 12/27. 59-year-old white female with alcoholic liver disease admitted with altered mental status which improved immensely after Narcan given. [place] she had an unintentional narcotic overdose. alert today but complaining of more pain but talking coherently , no nausea and less loose stools with less lactulose dose. Exam Narrative: Exam Narrative: General: Chronically ill-appearing female in bed. Nontoxic in appearance. Looks older than stated age. HEENT: PERRL, Sclerae anicteric Neck: Supple. Respiratory: Lung sounds are diminished at the bases. Cardiovascular: Regular rate and rhythm with S1-S2. Gastrointestinal: Abdomen is slightly firm and protuberant. Positive bowel sounds. No tenderness. Skin: Cool and dry. Chronic skin changes on the lower legs bilaterally. Feet are dry and scaly. Extremities: No edema. Radial and pedal pulses intact. Neurological: Alert and oriented x4. Cranial nerves 2-12 are grossly intact. Speech is clear, Diffusely weak, nonfocal. Psychiatric: Pleasant and cooperative. Although alert and oriented, Objective Data Vital Signs Vital Signs: Vital Signs - 24 hr 12/27/19 18:00 12/27/19 20:25 12/27/19 20:35 Temperature 36.3 C L Pulse Rate 120 H 128 H 123 H Respiratory Rate 118 H 18 18 Blood Pressure 100/57 L Pulse Oximetry 93 93 12/27/19 22:00 12/28/19 01:44 12/28/19 01:55 Temperature 37.2 C Pulse Rate 113 H 129 H 127 H Respiratory Rate 20 18 18 Blood Pressure 103/62 Pulse Oximetry 94 12/28/19 02:00 12/28/19 06:00 12/28/19 09:02 Temperature 37.3 C 36.8 C Pulse Rate 105 H 120 H 134 H Respiratory Rate 20 20 Blood Pres
[2019-12-28] MEDS: NORTRIPTYLINE HCL 10 MG CAPSULE PO (19:53)
[2019-12-29] VITALS (7 sets, daily range): BP systolic 96–101; BP diastolic 48–56; PULSE 115–124; RESP 16–20; TEMP 36.2–37.1; O2SAT 90–94
[2019-12-29] MEDS: IPRATROPIUM BR 0.02% INH SOLN 0.5 MG/2.5 ML VIAL INHALATION ×2 (02:24→08:42)
[2019-12-29] MEDS: PANTOPRAZOLE 40 MG TABLET PO (08:21)
[2019-12-29] MEDS: SPIRONOLACTONE 50 MG TABLET PO (08:21)
[2019-12-29] MEDS: VENLAFAXINE HCL XR 75 MG CAP.ER.24H PO (08:21)
[2019-12-29] MEDS: METOPROLOL SUCCINATE EXT REL 25 MG TABCR PO (08:21)
[2019-12-29] MEDS: NICOTINE (*PBKC) 21 MG PATCH 1 PATCH TRANSDERM (08:21)
[2019-12-29] MEDS: FUROSEMIDE 20 MG TABLET PO (08:22)
[2019-12-29] MEDS: LACTULOSE 20 GM/30 ML UDC PO ×2 (08:22→13:16)
--- NOTE | 2019-12-29 17:10 | PM.DS ---
DS: Diagnosis Admitting Diagnosis Admitting Diagnosis: Encephalopathy, unspecified Discharge Diagnosis (1) Encephalopathy: Code(s): G93.40 - Encephalopathy, unspecified Status: Acute Assessment and Plan: due to unintentional narcotic overdose and possibly some hepatic encephalopathy She is now alert and oriented x4 .. Ammonia is within normal limits again 12/26 , was elevated 12/25 B12 and TSH normal. Brain CT no acute changes her oxycodone was reinstituted at Q 8 hours instead of the previous Q 6. her pain was controlled and she remained alert with no altered mental status (2) Narcotic overdose: Qualifiers: Encounter type: initial encounter Injury intent: accidental or unintentional Qualified Code(s): T40.601A - Poisoning by unspecified narcotics, accidental (unintentional), initial encounter Code(s): T40.601A - Poisoning by unspecified narcotics, accidental (unintentional), initial encounter Status: Acute Assessment and Plan: Unintentional overdose. Off narcan and concern was that could be excibating some symptoms of withdrawal with the tachycardia but no GI symptoms or diaphoresis and as above resumed of oxycodone and Q 8 hours instead of Q 6 with good pain control change atenolol to metorprololxl for better heart rate control (3) Hypotension: Qualifiers: Hypotension type: unspecified hypotension type Qualified Code(s): I95.9 - Hypotension, unspecified Code(s): I95.9 - Hypotension, unspecified Status: Acute Assessment and Plan: She received IV fluid bolus after admission with some improvement in her blood pressures. Looking back through her prior history, her blood pressure is always run a bit soft. Resolved (4) Alcoholic cirrhosis: Code(s): K70.30 - Alcoholic cirrhosis of liver without ascites Status: Acute Assessment and Plan: Continue beta-skuh, furosemide, spironolactone, and lactulose as tolerated. ammonia level normal 12/26 (5) Chronic anemia: Code(s): D64.9 - Anemia, unspecified Status: Acute Assessment and Plan: Hemoglobin is stable on review of previous labs. HGB 8.9 today as it was 12/26 (6) Chronic abdominal pain: Code(s): R10.9 - Unspecified abdominal pain; G89.29 - Other chronic pain Status: Acute Assessment and Plan: Opiates have been on hold but with tachycardia and increased pain restarted a lesser dose 12/26 and changed beta sukh as above (7) Sinus tachycardia: Code(s): R00.0 - Tachycardia, unspecified Status: Acute Assessment and Plan: she continued with the sinus tachycardia. She was comfortable without pain, had no fever, was well hydrated, and hemoglobin was stable. TSH was normal. Atenolol was changed to metoprolol XL to try to achieve better heart rate control which did slightly. She not tolerate higher doses due to her blood pressure. Clinically she was much improved though and she will be discharge to have repeat laboratory work all on the . DS: Summary Hospital Course Hospital Course: 59-year-old white female with alcoholic liver disease admitted with altered mental status which improved rapidly with Narcan. She is on chronic oxycodone and Q 6 hours for back and abdominal discomfort. Ammonia was slightly elevated on the also and lactulose was increased for short time with falling levels. Her oxycodone was reinstituted q.8 hours instead of Q 6 which she tolerated well with control of pain and no lethargy. We substituted metoprolol XL for her atenolol an attempt to try to control her sinus tachycardia better Time Spent with Patient Time attestation: Total time spent providing and/or coordinating discharge services: 35 minutes Exam Narrative: Exam Narrative: condition on discharge blood pressure 100/60 pulse is 110 saturating 94 percent on room air lungs clear CV regular b
== END 2019-12-29 13:46 | DRG 917 ==
LOC: ANHED 18:32 → ANHICU 21:17 → ANH2MED 12-26 18:08 → ANHICU 12-31 13:57
PROVIDERS: Internal Medicine; Physician Assistant; Admitting Provider Family Medicine; Emergency Provider Emergency Medicine; PCP Family Medicine; Visit Provider Internal Medicine
DX: T40.601A Poisoning by unspecified narcotics, accidental (unintentional), initial encounter (principal); G92 Toxic encephalopathy; K72.90 Hepatic failure, unspecified without coma; I95.9 Hypotension, unspecified; K70.30 Alcoholic cirrhosis of liver without ascites; D64.9 Anemia, unspecified; R10.9 Unspecified abdominal pain; G89.29 Other chronic pain; R00.0 Tachycardia, unspecified; J44.9 Chronic obstructive pulmonary disease, unspecified; M35.00 Sjogren syndrome, unspecified; F41.8 Other specified anxiety disorders; L30.9 Dermatitis, unspecified; F10.21 Alcohol dependence, in remission; Z87.891 Personal history of nicotine dependence
CPT/HCPCS: 36415; 36600; 51701; 70450; 71045; 74019; 80048; 80053; 80307; 81001; 82140; 82375; 82607; 82805; 83050; 83605; 83735; 84100; 84443; 85025; 85610; 85730; 87040; 93005; 94640; 96361; 96365; 96366; 96375; 97110; 97116; 97161; 97165; 97530; 97535; 99285; A9270; J2310; J7030; J7040; J7050